=== PATIENT | male | born 1955 | race Caucasian/White ===

== ENCOUNTER 2018-12-29 23:56 | Emergency (ER) | payer SELFPAY ==
[~2018-12-29] VITALS: Ht 175.3 cm; Wt 90.7 kg
[2018-12-29 23:57] VITALS: Ht 175.3 cm; Wt 90.7 kg
[2018-12-30 00:46] LABS: BASOPHIL % 0.8 % (0-2); PLATELET COUNT 283 x10^3mcL (130-400)
[2018-12-30 00:49] LABS: RED CELL DISTRIBUTION WIDTH 14.6 % (11.5-14.5)
[2018-12-30 01:00] LABS: CALCIUM 8.3 mg/dL (8.5-10.1); CARBON DIOXIDE 24.8 mmol/L (21-32); CHLORIDE SERUM 108 mmol/L (98-107); CREATININE SERUM 1.6 mg/dL (0.7-1.3); GFR1 46 mL/min; GLUCOSE SERUM 94 mg/dL (74-106); POTASSIUM SERUM 4.2 mmol/L (3.5-5.1); SODIUM SERUM 143 mmol/L (136-145)
[2018-12-30 01:08] LABS: AMPHETAMINE QUAL UR POSITIVE (See below)
[2018-12-30 01:13] LABS: ALBUMIN 3.9 g/dL (3.4-5.0); ALKALINE PHOSPHATASE 79 U/L (46-116); ALT/SGPT 27 U/L (16-63); AST/SGOT 23 U/L (15-37); BILIRUBIN TOTAL 0.56 mg/dL (0.20-1.00)
[2018-12-30 02:31] VITALS: BP 155/93
== END 2018-12-30 02:31 | disposition home or self-care (01) ==
LOC: ED 23:56
PROVIDERS: Emergency Medicine
DX: F15.10 Other stimulant abuse, uncomplicated (principal); F22 Delusional disorders; Z90.89 Acquired absence of other organs
CPT/HCPCS: 36415; 99406; G0480; J7030

== ENCOUNTER 2019-02-05 14:22 | Emergency (ER) | payer OTHER ==
[~2019-02-05] VITALS: Ht 180.3 cm; Wt 99.8 kg
[2019-02-05 14:29] VITALS: BP 138/103; Ht 180.3 cm; Wt 99.8 kg
== END 2019-02-05 14:40 | disposition other institution (70) ==
LOC: ED 14:22
DX: Z02.89 Encounter for other administrative examinations (principal)